=== PATIENT | male | born 1940 | race Caucasian/White ===

== ENCOUNTER → 2023-07-05 | Emergency (ER) | payer OTHER, MEDICARE ==
[~2023-07-05] MED LIST: ASPIRIN 81 MG CHEWABLE TABLET ONE; AZITHROMYCIN 500 MG INJ IVPB ONE; CEFTRIAXONE 1000 MG/VIAL ONE; MIDODRINE HCL 5 MG TABLET ONE; NA CHLORIDE 0.9% 250 ML ONE; NA CHLORIDE 0.9% 500 ML ONE
[2023-07-05 08:49] LABS: Absolute Lymphocytes (CBC) 1.5 K/uL (0.7-4.9); Lymphocytes % 9.2 % (15.3-44.8); MCV 96.4 fL (80-100); MPV 9.2 fL (7.6-11.3); Platelets 286 thou/uL (152-406); RBC Red Blood Cell Count 3.83 M/uL (4.33-5.43)
[2023-07-05 09:10] LABS: Albumin 2.5 g/dL (3.4-5.0); Bilirubin Direct 0.2 mg/dL (0-0.2); Bilirubin Indirect, Calculated 0.5 mg/dL (0.2-0.8); Bilirubin Total 0.7 mg/dL (0.2-1.0); Potassium 4.1 mEq/L (3.5-5.1); Protein, Total 7.1 g/dL (6.4-8.2)
[2023-07-05 09:16] LABS: Troponin High Sensitivity 344.8 pg/mL (<58.9)
--- NOTE | 2023-07-05 09:20 | RAD REPORT ---
EXAM DESCRIPTION: [place] Single View07/05/2023 9:09 am CLINICAL HISTORY: SOB COMPARISON: Chest Pa And Lat (2 Views) dated 03/16/2019; CHEST SINGLE VIEW dated 12/05/2014 TECHNIQUE: Portable AP view of the chest. FINDINGS: New subtle left basilar airspace opacity. No pneumothorax or effusion. The cardiomediasti nal contours are unremarkable. IMPRESSION: New subtle left basilar airspace opacity, may reflect atelectasis or pneumonia.
[2023-07-05 10:04] LABS: Protime INR 1.96
--- NOTE | 2023-07-05 11:03 | EDPHYS ---
Physician Documentation [facility] Name: Bhanu Jane Age: 83 yrs Sex: Male : 1940 Arrival Date: 07/05/2023 Time: 08:22 Bed 8 Private MD: ED Physician Sam Schilling HPI: 07/05 08:29 This 83 yrs old Male presents to ER via Unassigned with complaints of sob. ec2 08:29 Patient arrives today for evaluation of shortness of breath. Patient with a history of ec2 shortness of breath, history of ESRD, on peritoneal dialysis nightly. Patient reports no fevers or chills, no cough and cold symptoms, no nausea or vomiting or diarrhea.. Historical: - Allergies: 08:32 No Known Allergies; ld1 - Home Meds: 08:32 Amiodarone 50 mg Oral 1 tab daily [Active]; metoprolol tartrate 25 mg Oral tablet 1 tab ld1 daily [Active]; Eliquis 2.5 mg oral tablet 2 tabs once [Active]; Plavix 75 mg Oral tablet 1 tab daily [Active]; Zetia 10 mg Oral tablet 1 tab daily [Active]; rosuvastatin 10 mg oral tablet 1 tab daily [Active]; midodrine 10 mg oral tablet 1 tab as needed [Active]; - PMHx: 08:35 Atrial fibrillation; Hypertensive disorder; ld1 08:35 peritoneal dialysis; ld1 - Immunization history:: Adult Immunizations up to date. - Social history:: Smoking status: Patient denies any tobacco usage or history of. Patient uses alcohol, occasionally. ROS: 08:29 Constitutional: as per hpi ec2 Exam: 08:29 Constitutional: GEN: NAD Head: atraumatic Eyes: EOMI Ears: External ears are ec2 normal. CV: regular rate, trace lower extremity edema LUNGS: no respiratory distress, no wheezes, rales, or rhonchi ABD: non-distended SKIN: no evidence of rashes MSK: no evidence of trauma NEURO: moves all extremities equally Vital Signs: 08:20 BP 92 / 50; Pulse 73; Resp 17; Pulse Ox 98% on R/A; ld1 08:31 BP 92 / 50; Pulse 84; Resp 17; Temp 98.5(TE); Pulse Ox 100% on R/A; Weight 97.52 kg; ld1 Height 6 ft. 1 in. ; Pain 0/10; 09:00 BP 85 / 72; Pulse 80; Resp 17; Pulse Ox 100% on R/A; ld1 09:00 BP 96 / 68; Pulse 73; Resp 18; Pulse Ox 100% on R/A; ld1 09:40 BP 96 / 68; ec2 12:01 BP 110 / 43; Pulse 71; aa5 12:24 BP 109 / 46; Pulse 66; Resp 18; Pulse Ox 100% on R/A; ld1 08:31 Body Mass Index 28.37 (97.52 kg, 185.42 cm) ld1 08:31 Pain Scale: Adult ld1 MDM: 08:28 Patient medically screened. ec2 08:29 Data reviewed: vital signs. ED course: Patient arrives today for evaluation of ec2 shortness of breath. Examination remarkable for cardiopulmonary findings as noted above. Will obtain lab work, EKG, chest x-ray for further assessment patient complaint. . 08:53 ED course: EKG independently reviewed and interpreted by me, shows atrial fibrillation, ec2 rate of 75, no acute ST segment elevations, nonconcerning intervals.. 09:21 ED course: Metabolic profile shows expected renal dysfunction, CBC shows anemia along ec2 with leukocytosis. BNP elevated at approximately 12,000. Troponin elevated at 345. Flu swab is negative. . 10:26 ED course: Does have slightly elevated lactic acid, suspect this is more likely ec2 secondary to patient's delayed clearance from his renal disease.. 11:01 ED course: Will transfer the patient given the patient's peritoneal dialysis ec2 requirement. Pending transfer.. 07/05 08:29 Order name: Basic Metabolic Panel; Complete Time: 09:20 ec2 07/05 08:29 Order name: CBC with Diff; Complete Time: 09:20 ec2 07/05 08:29 Order name: NT PRO-BNP; Complete Time: :20 ec2 07/05 08:29 Order name: Troponin HS; Complete Time: :20 ec2 07/05 08:29 Order name: LFT's; Complete Time: 09:20 ec2 07/05 08:29 Order name: SARS-COV-2 RT PCR; Complete Time: 09:34 ec2 07/05 08:29 Order name: Influenza Screen (a \T\ B); Complete Time: 09:20 07/05 09:24 Order name: Blood Culture Adult (2) 07/05 09:24 Order name: Lactate w/ 2H reflex if indic.; Complete Time: 10:19 07/05 09:24 Order name: Protime (+inr); Complete Time: 10:13 07/05 09:24 Order name: Ptt, Activated; Complete Time: 10:13 07/05 08:29 Order name: XRAY Chest (1 view); Complete Time: 09:21 07/05 08:29 Order name: EKG; Complete Time: 08:29 07/05 08:29 Order name: Cardiac monitoring; Complete Time: 08:37 07/05 08:29 Order name: EKG - Nurse/Tech; Complete Time: 08:37 07/05 08:29 Order name: IV Saline Lock; Complete Time: 08:43 07/05 08:29 Order name: Labs collected and sent; Complete Time: 08:43 07/05 08:29 Order name: O2 Per Protocol; Complete Time: 08:37 07/05 08:29 Order name: O2 Sat Monitoring; Complete Time: 08:37 07/05 09:24 Order name: Accucheck; Complete Time: 09:25 07/05 09:24 Order name: IV Saline Lock - Large Bore; Complete Time: 09:25 07/05 09:24 Order name: Vital Signs; Complete Time: 09:25 Administered Medications: 09:51 Drug: Aspirin PO Chewable Tablet 324 mg PO once; 81 mg tablets x 4 Route: PO; ld1 09:51 Drug: Rocephin IV 1 grams IV at calculated rate once; Given slow IV push per pharmacy ld1 instructions Route: IV; Rate: calculated rate; Site: right antecubital; 09:51 Drug: AZITHromycin IVPB 500 mg IVPB once over 1 hrs; (mix in 250 mL NS) Route: IVPB; ld1 Infused Over: 1 hrs; Site: left antecubital; 09:51 Drug: NS 0.9% IV 500 ml IV at bolus once Route: IV; Rate: bolus; Site: right ld1 antecubital; 10:21 Drug: midodrine 20 mg PO once Route: PO; ld1 Disposition Summary: 07/05/23 11:03 Transfer Ordered Notes: Reason: Higher level of care ec2 Condition: Stable ec2 Problem: an acute exacerbation ec2 Symptoms: are unchanged ec2 Transfer Location: [facility](07/05/23 11:48) ec2 Accepting Physician: Dr. Olmedo (07/05/23 12:25) ld1 Diagnosis - Troponin Elevation ec2 - Dyspnea, unspecified ec2 Forms: - Medication Reconciliation Form ec2 - SBAR form ec2 Signatures: Dispatcher [employer] EDMaci Somers RN RN ld1 Priti Diaz PA-C PA-C sb4 Sam Schilling MD MD ec2 Corrections: (The following items were deleted from the chart) 11:48 11:03 transferring doc ec2 ec2 11:48 11:03 Other Acute Care Facility ec2 ec2 12:25 11:48 Dr. Olmedo ec2 ld1
--- NOTE | 2023-07-05 11:03 | ER ---
Nurse's Notes [facility] Name: Bhanu Jane Age: 83 yrs Sex: Male : 1940 Arrival Date: 07/05/2023 Time: 08:22 Bed 8 Private MD: Diagnosis: Troponin Elevation;Dyspnea, unspecified Presentation: 07/05 08:31 Chief complaint: EMS states: toned out to patient home for SOB. Pt states "I felt too ld1 weak to get out of bed this morning.". Coronavirus screen: At this time, the client does not indicate any symptoms associated with coronavirus-19. Ebola Screen: No symptoms or risks identified at this time. Initial Sepsis Screen: Does the patient meet any 2 criteria? No. Patient's initial sepsis screen is negative. Does the patient have a suspected source of infection? No. Patient's initial sepsis screen is negative. Risk Assessment: Do you want to hurt yourself or someone else? Patient reports no desire to harm self or others. Onset of symptoms was July 05, 2023 at 08:32. 08:31 Method Of Arrival: EMS: [facility] ld1 08:31 Acuity: JEANNETTE 3 ld1 Triage Assessment: 08:35 General: Appears in no apparent distress. comfortable, Behavior is calm, cooperative, ld1 appropriate for age. Pain: Denies pain. EENT: No signs and/or symptoms were reported regarding the EENT system. Neuro: Level of Consciousness is awake, alert, obeys commands, Oriented to person, place, time, situation. Cardiovascular: Capillary refill < 3 seconds Patient's skin is warm and dry. Rhythm is atrial fibrillation. Respiratory: Reports shortness of breath at rest on exertion Airway is patent Respiratory effort is even, unlabored, Onset: The symptoms/episode began/occurred suddenly, the patient has mild shortness of breath. GI: Abdomen is round non-distended. : No signs and/or symptoms were reported regarding the genitourinary system. Derm: No signs and/or symptoms reported regarding the dermatologic system. Musculoskeletal: No signs and/or symptoms reported regarding the musculoskeletal system. Historical: - Allergies: 08:32 No Known Allergies; ld1 - Home Meds: 08:32 Amiodarone 50 mg Oral 1 tab daily [Active]; metoprolol tartrate 25 mg Oral tablet 1 tab ld1 daily [Active]; Eliquis 2.5 mg oral tablet 2 tabs once [Active]; Plavix 75 mg Oral tablet 1 tab daily [Active]; Zetia 10 mg Oral tablet 1 tab daily [Active]; rosuvastatin 10 mg oral tablet 1 tab daily [Active]; midodrine 10 mg oral tablet 1 tab as needed [Active]; - PMHx: 08:35 Atrial fibrillation; Hypertensive disorder; ld1 08:35 peritoneal dialysis; ld1 - Immunization history:: Adult Immunizations up to date. - Social history:: Smoking status: Patient denies any tobacco usage or history of. Patient uses alcohol, occasionally. Screenin:36 [facility] ED Fall Risk Assessment (Adult) History of falling in the last 3 months, ld1 including since admission No falls in past 3 months (0 pts). Abuse screen: Denies threats or abuse. Denies injuries from another. Nutritional screening: No deficits noted. Nutritional screening:. Tuberculosis screening: No symptoms or risk factors identified. Assessment: 08:36 Reassessment: See triage assessment. Cardiovascular: Capillary refill < 3 seconds ld1 Patient's skin is warm and dry. Rhythm is atrial fibrillation. Respiratory: Airway is patent Respiratory effort is even, unlabored, Breath sounds are clear bilaterally. 09:50 Reassessment: No changes from previously documented assessment. Patient and/or family ld1 updated on plan of care and expected duration. Pain level reassessed. Patient is alert, oriented x 3, equal unlabored respirations, skin warm/dry/pink. Patient denies pain at this time. Vital Signs: 08:20 BP 92 / 50; Pulse 73; Resp 17; Pulse Ox 98% on R/A; ld1 08:31 BP 92 / 50; Pulse 84; Resp 17; Temp 98.5(TE); Pulse Ox 100% on R/A; Weight 97.52 kg; ld1 Height 6 ft. 1 in. ; Pain 0/10; 09:00 BP 85 / 72; Pulse 80; Resp 17; Pulse Ox 100% on R/A; ld1 09:00 BP 96 / 68; Pulse 73; Resp 18; Pulse Ox 100% on R/A; ld1 09:40 BP 96 / 68; ec2 12:01 BP 110 / 43; Pulse 71; aa5 12:24 BP 109 / 46; Pulse 66; Resp 18; Pulse Ox 100% on R/A; ld1 08:31 Body Mass Index 28.37 (97.52 kg, 185.42 cm) ld1 08:31 Pain Scale: Adult ld1 ED Course: 08:25 Patient arrived in ED. eb 08:28 Sam Schilling MD is Attending Physician. ec2 08:31 Maci Mcnamara, RN is Primary Nurse. ld1 08:32 Triage completed. ld1 08:35 Arm band placed on right wrist. EKG completed in triage. Results shown to MD. ld1 08:36 Patient has correct armband on for positive identification. Placed in gown. Bed in low ld1 position. Call light in reach. Side rails up X2. ekg monitor on. Pulse ox on. NIBP on. Door closed. Noise minimized. Warm blanket given. 08:36 No provider procedures requiring assistance completed. ld1 08:43 Influenza Screen (a \\T\\ B) Sent. ld1 08:43 SARS-COV-2 RT PCR Sent. ld1 08:43 Inserted saline lock: 20 gauge in right antecubital area, using aseptic technique. ld1 Blood collected. 08:43 EKG done, by ED staff, reviewed by Sam Schilling MD. aa5 09:09 XRAY Chest (1 view) In Process Unspecified. EDMS 09:51 Blood Culture Adult (2) Sent. ld1 09:51 Lactate w/ 2H reflex if indic. Sent. ld1 09:51 Protime (+inr) Sent. ld1 09:51 Ptt, Activated Sent. ld1 11:03 initiated a transfer with YULIET Keating with the [facility]. eb 11:21 per YULIET they are trying to work on making a bed for the patient/ and according to his eb system patient gets treatment at [facility]. 11:26 initiated a transfer with Yesenia from the [facility]. eb 11:34 per Yesenia Peaceist will have to decline the transfer they do not have any IMU beds eb at this time/. 11:46 connected the ED physician mixer diamond powder for [facility] with Dr. Schilling for patient eb transfer consultation. 11:48 administrative approval given by YULIET Keating. pt has been accepted to [facility] ED/ eb Dr. Libby Olmedo has accepted the patient in transfer/ report to be called to [phone]. 12:25 Patient transferred, IV remains in place. ld1 Administered Medications: 09:51 Drug: Aspirin PO Chewable Tablet 324 mg PO once; 81 mg tablets x 4 Route: PO; ld1 09:51 Drug: Rocephin IV 1 grams IV at calculated rate once; Given slow IV push per pharmacy ld1 instructions Route: IV; Rate: calculated rate; Site: right antecubital; :51 Drug: AZITHromycin IVPB 500 mg IVPB once over 1 hrs; (mix in 250 mL NS) Route: IVPB; ld1 Infused Over: 1 hrs; Site: left antecubital; :51 Drug: NS 0.9% IV 500 ml IV at bolus once Route: IV; Rate: bolus; Site: right ld1 antecubital; 10:21 Drug: midodrine 20 mg PO once Route: PO; ld1 Medication: 08:36 VIS not applicable for this client. ld1 Outcome: 11:03 ER care complete, transfer ordered by . ec2 12:25 Transferred by ground EMS ld1 12:25 Condition: stable 12:25 Discharge instructions given to patient, Instructed on discharge instructions, follow up and referral plans. Demonstrated understanding of instructions, follow-up care, 12:25 Patient left the ED. ld1 Signatures: Dispatcher [employer] Rozina Mcneil, RN RN aa5 Svetlana Brand Lauren, RN RN ld1 Sam Schilling MD MD ec2
[2023-07-05 14:56] VITALS: TEMP 98.5; O2SAT 100
[2023-07-05 15:21] VITALS: BP 109/46
--- NOTE | 2023-07-07 16:58 | EKG ---
Test Date: 2023-07-05 Test Time: 08:44:54 Tension Machine Operator: MAGALIE MEASUREMENT RESULTS: Intervals: Rate: 75 MD: QRSD: 82 QT: 386 QTc: 431 Irving: P: MD: QRS: 49 T: 136 INTERPRETIVE STATEMENTS: Atrial fibrillation Low voltage QRS Abnormal ECG No previous ECG available for comparison Electronically Signed On 07-07-23 16:53:12 HOUSE STEWARD/STEWARDESS by Satya Hurt
== END ==
LOC: ER 08:22
DX: R79.89 Other specified abnormal findings of blood chemistry (principal); R06.00 Dyspnea, unspecified; R06.02 Shortness of breath; N18.6 End stage renal disease; Z99.2 Dependence on renal dialysis; Z11.52 Encounter for screening for COVID-19; I48.91 Unspecified atrial fibrillation; I10 Essential (primary) hypertension
CPT/HCPCS: 93005; 87040 ×2; 85025; 80048; 36415; 85610; 80076; 83605; 85730; 84484; 83880; 87635; 87804 ×2; 71045; 99285; J7050; J7040; J0696